=== PATIENT | male | born 1995 | race Two or more races ===

== ENCOUNTER 2018-10-29 19:02 | Emergency (ER) | payer MEDICAID ==
[~2018-10-29] VITALS: Ht 188 cm; Wt 68.0 kg
[2018-10-29 19:11] VITALS: BP 159/94
== END 2018-10-29 20:30 | disposition home or self-care (01) ==
LOC: ER 19:02
DX: F11.20 Opioid dependence, uncomplicated (principal); F15.20 Other stimulant dependence, uncomplicated
CPT/HCPCS: 99281

== ENCOUNTER → 2018-10-30 | Emergency (ER) | END | disposition left against medical advice (07) | LOC: ER 01:53 | DX: F10.129 Alcohol abuse with intoxication, unspecified (principal); Z53.21 Procedure and treatment not carried out due to patient leaving prior to being seen by health care provider ==